=== PATIENT | male | born 1990 ===

== ENCOUNTER 2021-12-31 02:24 | Emergency (ER) | payer SELFPAY ==
[~2021-12-31] VITALS: Ht 170.2 cm; Wt 82.7 kg
[2021-12-31 02:31] VITALS: BP 142/90
== END 2021-12-31 03:29 ==
LOC: ER 02:25
DX: F10.129 Alcohol abuse with intoxication, unspecified (principal); Z02.89 Encounter for other administrative examinations; Y90.9 Presence of alcohol in blood, level not specified
CPT/HCPCS: 99283